=== PATIENT | female | born 1980 | race Asian ===

== ENCOUNTER 2024-03-15 11:48 | Outpatient (CLI) | payer BC | END 2024-03-15 11:49 | disposition home or self-care (01) | LOC: BICMAMMO 11:48 | PROVIDERS: ATTEND Physician Assistant | DX: Z12.31 Encounter for screening mammogram for malignant neoplasm of breast (principal); N64.89 Other specified disorders of breast | CPT/HCPCS: 77063; 77067 ==

== ENCOUNTER 2024-03-16 13:29 | Outpatient (CLI) | payer BC | END 2024-03-16 13:30 | disposition home or self-care (01) | LOC: BICMAMMO 13:29 | PROVIDERS: ATTEND Physician Assistant | DX: N64.89 Other specified disorders of breast (principal) | CPT/HCPCS: G0279 ==